=== PATIENT | female | born 1960 | race Hispanic/Latino ===

== ENCOUNTER 2023-03-12 11:17 | Outpatient (CLI) | payer MEDICAID, SELFPAY ==
[2023-03-12 11:50] LABS: Hemoglobin A1C 7.7 % (<5.7)
[2023-03-12 11:57] LABS: Alanine Aminotransferase 21 U/L (6-35); Albumin Level 4.7 g/dL (3.5-5.1); Alkaline Phosphatase 141 U/L (38-126); Anion Gap 11 mmol/L (8-16); Aspartate Amino Transferase 32 U/L (14-36); Bilirubin,Total 0.5 mg/dL (0.2-1.3); Blood Urea Nitrogen 38 mg/dL (7-17); Carbon Dioxide 23 mmol/L (22-30); Chloride 104 mmol/L (98-107); Cholesterol 198 mg/dL (0-200); Estimated Glomerular Filt Rate 25; Glucose 108 mg/dL (65-110); HDL Direct 45 mg/dL; Potassium 5.4 mmol/L (3.4-5.0); Sodium 138 mmol/L (137-145); Triglycerides 222 mg/dL (<150)
[2023-03-12 12:07] LABS: LDL Cholesterol Direct 87 mg/dL
== END 2023-03-12 11:18 | disposition home or self-care (01) ==
LOC: ANHLAB 11:24
PROVIDERS: PCP Physician Assistant; Visit Provider Physician Assistant
DX: N18.9 Chronic kidney disease, unspecified (principal); E11.9 Type 2 diabetes mellitus without complications
CPT/HCPCS: 36415; 80053; 80061; 83036

== ENCOUNTER 2023-04-25 09:07 | Outpatient (CLI) | payer MEDICAID, SELFPAY ==
--- NOTE | ~2023-04-25 | NM_ITS ---
EXAMINATION: NM casey stress w perfusion DATE: 04/25/2023 13:18 INDICATION: Dyspnea on exertion TECHNIQUE: Rest images were obtained following intravenous administration of 9.6 mCi Tc99m tetrofosmi n (Myoview). The patient was infused intravenously with Lexiscan (Regadenoson). Then, 31.8 mCi Tc99m tetrofosmin (Myoview) was administered intravenously, and stress images were obtained. Data was recon structed into short axis and horizontal and vertical long axis SPECT images. Gated SPECT images were also obtained. COMPARISON: None. FINDINGS: Normal perfusion on the rest imaging with no perfusion defect to suggest infarct. Small mil d reversible perfusion defect on post stress images consistent with ischemia at the junction of the a pical lateral and mid inferolateral segments. There is normal left ventricular chamber size, wall mot ion and ejection fraction. Left ventricular ejection fraction measures >70%. IMPRESSION: 1. Small mild reversible perfusion defect consistent with ischemia at the apical lateral and mid infe rolateral segments in the circumflex coronary artery vascular distribution. 2. Left ventricular ejection fraction measuring >70%. Reviewed, dictated and finalized at location A. IMPRESSION: 1. Small mild reversible perfusion defect consistent with ischemia at the apica l lateral and mid inferolateral segments in the circumflex coronary artery vasc ular distribution. 2. Left ventricular ejection fraction measuring >70%.
--- NOTE | 2023-04-25 10:27 | EST_ITS ---
Patient Info Name: Pinky Deleno Age: 62 years : 1960 Gender: Female Ht: 63 in Wt: 103 lbs BSA: 1.43 m2 HR: 87 bpm BP: 170 / 57 mmHg Heart Rhythm: Sinus Rhythm Exam Date: 04/25/2023 11:50 AM Exam Location: [facility] Stress Patient Status: Outpatient Admit Date: 04/25/2023 Staff Ordering Physician: William Gaffney DO Attending Provider: William Gaffney DO Exercise Technologist: Tracey Martin CT Exercise Physician: William Gaffney DO Exam Type: CA stress casey w NM Study Info Indications R06.09 - Other forms of dyspnea A regadenoson stress test was performed. Summary 1. 1. Negative Lexiscan stress test for ischemic ST changes by ECG criteria. 2. 2. Baseline hypertension. 3. 3. Nuclear scan to follow and will be reported separately. Please correlate with it. 4. 4. Patient informed of the above results. Protocol: Lexiscan Stress ECG Details Stage: REST Duration (min): 2 min : 9 sec HR (bpm): 86 SBP (mmHg): 155 DBP (mmHg): 65 Stage: REST Duration (min): 11 min : 6 sec HR (bpm): 87 SBP (mmHg): 170 DBP (mmHg): 57 Stage: STAGE 1 Duration (min): 1 min : 0 sec HR (bpm): 105 SBP (mmHg): 179 DBP (mmHg): 63 Stage: RECOVERY Duration (min): 1 min : 0 sec HR (bpm): 102 SBP (mmHg): 179 DBP (mmHg): 63 Stage: RECOVERY Duration (min): 2 min : 0 sec HR (bpm): 99 SBP (mmHg): 179 DBP (mmHg): 63 Stage: RECOVERY Duration (min): 3 min : 0 sec HR (bpm): 99 SBP (mmHg): 172 DBP (mmHg): 64 Stage: RECOVERY Duration (min): 3 min : 12 sec HR (bpm): 101 SBP (mmHg): 172 DBP (mmHg): 64 Rest HR: 87 bpm Peak HR: 105 bpm Rest Sys BP: 170 mmHg Peak Sys BP: 179 mmHg Max Pred HR: 156 bpm % Max Pred HR: 67 % Target HR: 133 bpm Max RPP: 18,795 bpm*mmHg Termination Reason: Completed protocol Cardiac Symptoms: Shortness of breath Total Time: 1 min : 0 sec Rest Goyal BP: 57 mmHg Peak Goyal BP: 63 mmHg Total Dose: 0.4 mg Resting ECG Sinus rhythm. Stress ECG No ST changes. Arrhythmias None. Report Signatures
--- NOTE | 2023-04-25 10:27 | ECHO_ITS ---
Patient Info Name: Pinky Deleon Age: 62 years : 1960 Gender: Female Ht: 61 in Wt: 103 lbs BSA: 1.42 m2 HR: 79 bpm BP: 176 / 74 mmHg Technical Quality: Good Exam Date: 04/25/2023 10:46 AM Exam Location: [facility] Patient Status: Outpatient Admit Date: 04/25/2023 Staff Ordering Physician: William Gaffney DO Dragger: Violeta Pepper RDCS Attending Provider: William Gaffney DO Referring Physician: Gulshan STOKES; Exam Type: CA echo doppler color flow Study Info Indications R06.09 - Other forms of dyspnea Complete two-dimensional, color flow and Doppler transthoracic echocardiogram is performed. Summary 1. Complete two-dimensional, color flow and Doppler transthoracic echocardiogram is performed. 2. Left ventricular chamber dimension is normal. 3. Left ventricular systolic function is normal, estimated at 60-65%. 4. The left ventricular diastolic function is grade I diastolic dysfunction. 5. E/e' 13 is mildly elevated. 6. Global longitudinal strain is normal at -19.8%. 7. Left atrial chamber dimension is mildly enlarged. 8. There is mild mitral valve regurgitation. 9. There is mild tricuspid valve regurgitation. 10. Moderate pulmonary hypertension, estimated pulmonary arterial systolic pressure is 57 mmHg. Left Ventricle E/e' 13 is mildly elevated. Global longitudinal strain is normal at -19.8%. Left ventricular chamber dimension is normal. Left ventricular systolic function is normal, estimated at 60-65%. The left ventricular diastolic function is grade I diastolic dysfunction. Right Ventricle Right ventricular chamber dimension is normal. Right ventricular systolic function is normal. Left Atria Left atrial chamber dimension is mildly enlarged. Right Atria Right atrial chamber dimension is normal. Aortic Valve The aortic valve is trileaflet. There is no aortic valve stenosis. There is no aortic valve regurgitation. Pulmonic Valve There is no pulmonic regurgitation. Mitral Valve There is no mitral valve stenosis. There is mild mitral valve regurgitation. Tricuspid Valve There is mild tricuspid valve regurgitation. Moderate pulmonary hypertension, estimated pulmonary arterial systolic pressure is 57 mmHg. Pericardium/Pleural There is no pericardial effusion. Inferior Vena Cava Normal inferior vena cava with >50% collapse upon inspiration consistent with normal right atrial pressure, 5 mmHg. Aorta The aortic root size at the sinus of Valsalva is normal. Left Ventricular Outflow Tract Name Value Normal LVOT 2D LVOT Diameter 1.9 cm LVOT Doppler LVOT Peak Gradient 9 mmHg LVOT Mean Gradient 5 mmHg LVOT VTI 34 cm LVOT VTI/AV VTI Ratio 1.0 LVOT Stroke Volume 94 ml LVOT CO 7.9 l/min LVOT CI 5.6 l/min/m2 Pulmonic Valve Name Value Normal RVOT Doppler
== END 2023-04-25 09:08 | disposition home or self-care (01) ==
LOC: ANHCARD 09:09
PROVIDERS: PCP Physician Assistant; Visit Provider Internal Medicine Cardiovascular Disease
DX: R07.9 Chest pain, unspecified (principal); R06.09 Other forms of dyspnea; I34.0 Nonrheumatic mitral (valve) insufficiency; I36.1 Nonrheumatic tricuspid (valve) insufficiency
CPT/HCPCS: 78452; 93017; 93306; A9502; J2785